=== PATIENT | female | born 1965 | race African-American/Black ===

== ENCOUNTER 2017-03-31 10:02 | Day surgery (SDC) | payer BC, OTHER ==
[~2017-03-31 10:02] MED LIST: Bupivacaine 0.25% SDV* 30 ML ONE
[2017-03-31] MEDS ORDERED: Lidocaine 1.5% EPI 1:200,000* 30 ML SDV ONE (10:40)
[2017-03-31 13:04] VITALS: BP 122/85
--- NOTE | 2017-04-04 13:25 | OP ---
DATE OF OPERATION: 03/31/17 - [facility] DATE OF : 61 SURGEON: Dionicio Alexandra MD NUTRITION SPECIALIST: KRISTAN Randle ANESTHESIOLOGIST: None. ANESTHESIA: Local only with 1.5% lidocaine with epinephrine and bicarbonate. PRE-OP DIAGNOSIS: Right carpal tunnel syndrome. POST-OP DIAGNOSIS: Right carpal tunnel syndrome. OPERATIVE PROCEDURE: Right open carpal tunnel release. INDICATIONS: Doris is 51. She has a history of cerebral palsy. She has had progressive right carpal tunnel syndrome that is really impacting her sleep and her daily function. We had talked extensively about the surgery and the postoperative course that will be more difficult given her need to use assistive devices for ambulation and wanted to proceed with surgery. FINDINGS: As expected. ESTIMATED BLOOD LOSS: 5 mL. COMPLICATIONS: None. DESCRIPTION OF PROCEDURE: Doris was seen in the preoperative holding area. The correct side, site, and procedure were identified. We had a time-out. I then anesthetized the operative area with local anesthetic. A short time later , we came back to the operating room and the arm was prepped and draped in the usual fashion and a formal time-out was performed. I began by making a standard 2 to 3-cm incision in the typical location for an open carpal tunnel release. Dissection was carried down through the subcutaneous tissue and palmar fascia. The transverse carpal ligament was then released just off of the radial aspect of the hook of the hamate. The release was continued distally and proximally with the tenotomy scissors. When I got to the wrist flexion crease, I went ahead and released the subcutaneous tissue and retracted this volarly and ulnarly. Under direct visualization, I used a tenotomy scissors to completely release the proximal aspect of the transverse carpal ligament at the distal antebrachial fascia, just off the ulnar aspect of the palmaris longus tendon to the level several centimeters proximal to the wrist flexion crease. I then checked the release distally and proximally. There was absolutely no compression on the nerve, so I irrigated out the wound. The skin was closed with 4-0 nylon suture. Some 0.25% Marcaine was infiltrated into the operative area. The wound was then dressed with Xeroform, 4x4s, sterile Webril, and an Yrn bandage. She was then taken to recovery room in stable condition. [id number]/[facility] #: [id number] PAVITHRA
== END 2017-03-31 12:53 | disposition home or self-care (01) ==
LOC: OREAST 10:02
PROVIDERS: ATTEND Orthopaedic Surgery Hand Surgery
DX: G56.03 Carpal tunnel syndrome, bilateral upper limbs (principal); G80.9 Cerebral palsy, unspecified